=== PATIENT | male | born 1995 | race Caucasian/White ===

== ENCOUNTER 2016-09-28 17:18 | Emergency (ER) | payer SELFPAY ==
[2016-09-28 17:35] VITALS: BP 116/69
--- NOTE | 2016-09-28 18:07 | RAD ---
INDICATION: Cough. Chest pain. COMPARISON: None TECHNIQUE: PA and lateral dual-energy views were obtained. FINDINGS: Bones/Soft Tissues: There are no acute bony findings. Cardiomediastinal: The cardiomediastinal silhouette is normal. Lungs: There are no infiltrates. Pleura: There are no pleural effusions. Other: None IMPRESSION: NORMAL CHEST.
--- NOTE | 2016-09-28 18:20 | UC ---
UC General HPI - HPI Summary HPI Summary: Patient complaining of 2 weeks of EID fever, cough, N/V/D, muscle aches and general malaise, COugh present - History of Current Complaint Chief Complaint: UCGeneralIllness Stated Complaint: SORE THROAT, AND FEVER Time Seen by Provider: 09/28/16 17:37 Hx Obtained From: Patient Onset/Duration: Sudden Onset, Lasting Weeks Timing: Constant Onset Severity: Moderate Current Severity: Severe Associated Signs & Symptoms: Positive: Cough, Fever, Headache, Nausea, Wheezing - Allergy/Home Medications Allergies/Adverse Reactions: Allergies Allergy/AdvReac Type Severity Reaction Status Date / Time No Known Allergies Allergy Verified 09/28/16 17:27 Home Medications: Home Medications Ibuprofen [Advil] 400 09/28/16 [History] [id number] [Nyquil Severe Cold/Flu 5-6.25-10-325 mg/15Ml] 09/28/16 [History] PMH/Surg Hx/FS Hx/Imm Hx Previously Healthy: Yes Cardiovascular History Of: Reports: Cardiac Disorders - palpitations Respiratory History Of: Reports: Asthma - Surgical History Surgical History: None - Family History Known Family History: Positive: Hypertension - Social History Alcohol Use: Rare Substance Use Type: Marijuana Smoking Status (MU): Light Every Day Tobacco Smoker Review of Systems Constitutional: Fever, Fatigue Skin: Negative Eyes: Negative ENT: Sore Throat Respiratory: Cough Cardiovascular: Negative Gastrointestinal: Negative Genitourinary: Negative Motor: Negative Neurovascular: Negative Musculoskeletal: Arthralgia, Myalgia Neurological: Headache Psychological: Anxious All Other Systems Reviewed And Are Negative: Yes Physical Exam Triage Information Reviewed: Yes Appearance: Ill-Appearing, Pain Distress, Thin Vital Signs: Initial Vital Signs Temp 100.8 F 09/28/16 17:28 Pulse 94 09/28/16 17:28 Resp 18 09/28/16 17:28 BP 116/69 09/28/16 17:28 Pulse Ox 99 09/28/16 17:28 Vital Signs Reviewed: Yes Eye Exam: Normal Eyes: Positive: Conjunctiva Clear ENT Exam: Normal ENT: Positive: Hearing grossly normal, Pharynx normal, TMs normal Dental Exam: Normal Neck exam: Normal Neck: Positive: Supple, Nontender, No Lymphadenopathy Respiratory Exam: Normal Respiratory: Positive: No accessory muscle use, Respiratory distress, Rhonchi, Wheezing, Inspiration, Other: - chest tender in right lower ribs Cardiovascular Exam: Normal Cardiovascular: Positive: RRR, No Murmur, Pulses Normal Abdominal Exam: Normal Abdomen Description: Positive: Nontender, No Organomegaly, Soft Bowel Sounds: Positive: Present Musculoskeletal Exam: Normal Musculoskeletal: Positive: Strength Intact, ROM Intact, No Edema Neurological Exam: Normal Neurological: Positive: Alert, Muscle Tone Normal Psychological Exam: Normal Skin Exam: Normal Course/Dx - Course Course Of Treatment: hx obtained, exam performed, meds reviewed, chest xray neg , UA neg frlu swab neg. - Differential Dx - Multi-Symptom Provider Diagnoses: viral syndrome Discharge - Discharge Plan Condition: Stable Disposition: HOME Patient Education Materials: Viral Syndrome (ED) Additional Instructions: 1. Take the medication as prescribed. 2. Get plenty of rest and increase your fluid intake. 3. FOllow up with any worsening symptoms
== END 2016-09-28 18:32 | disposition home or self-care (01) ==
LOC: UCEAST 17:18
DX: B34.9 Viral infection, unspecified (principal); J45.909 Unspecified asthma, uncomplicated; F12.90 Cannabis use, unspecified, uncomplicated; F17.210 Nicotine dependence, cigarettes, uncomplicated
CPT/HCPCS: 71020; 81003; 87502; 99202; G0463